=== PATIENT | male | born 1965 | race Caucasian/White ===

== ENCOUNTER 2023-08-10 07:30 | Inpatient (IN) | payer OTHER ==
[2023-08-10] MEDS ORDERED: Aspirin Chewable 81 MG TAB ONE (08:11)
[2023-08-10] MEDS ORDERED: Nitroglycerin 0.4 MG TAB 1 EACH ONE (08:11)
[2023-08-10] MEDS ORDERED: methylPREDNISolone Sod Succ/PF 125 MG/2 ML VIAL ONE (08:12)
[2023-08-10] MEDS ORDERED: Ipratropium/Albuterol 3 ML NEB ONE ×3 (08:13→08:44)
[2023-08-10 08:47] LABS: #Basophils 0.1 thou/uL (0.0-0.2); #Eosinphils 1.1 thou/uL (0.0-0.7); #Monocytes 0.7 thou/uL (0.11-0.59); #Neutrophils 8.4 thou/uL (1.40-6.50); %Basophils 0.6 % (0.0-1.0); %Eosinophils 8.9 % (0.0-10.0); %Lymphocytes 17.7 % (21.0-51.0); %Monocytes 5.4 % (0.0-10.0); %Neutrophils 67.2 % (42.0-75.0); Hematocrit 44.6 % (42.0-52.0); Hemoglobin 14.4 g/dL (14.0-18.0); Mean Corpuscular HGB CONC 32.3 g/dL (32.0-36.0); Mean Corpuscular Hemoglobin 27.9 pg (27.0-31.0); Mean Corpuscular Volume 86.4 fl (78.0-98.0); Mean Platelet Volume 9.9 fL (7.4-10.4); Platelet Count 322 10x3/uL (130-400); RBC Distribution Width 14.4 % (11.5-14.5); Red Blood Cell (RBC) Count 5.16 mill/uL (4.70-6.10); White Blood Cell (WBC) Count 12.6 10x3/uL (4.8-10.8)
[2023-08-10 09:13] LABS: Troponin I 0.011 ng/mL (< 0.028)
[2023-08-10 09:16] LABS: ALT (SGPT) 18 U/L (8-55); AST (SGOT) 16 U/L (5-34); Albumin 4.8 g/dL (3.5-5.0); Alkaline Phosphatase 79 U/L (40-110); Anion Gap 15 mmol/L (10-20); BUN (Urea Nitrogen) 15 mg/dL (8.4-25.7); Bilirubin, Total 0.3 mg/dL (0.2-1.2); Calc. Creatinine Clearance 0 mL/min (70-130); Calcium 9.4 mg/dL (7.8-10.44); Carbon Dioxide 28 mmol/L (22-29); Chloride 102 mmol/L (98-107); Estimated GFR 102; Globulin 2.6 g/dL (2.4-3.5); Glucose 92 mg/dL (70-105); Potassium 4.2 mmol/L (3.5-5.1); Protein, Total 7.4 g/dL (6.0-8.3); Sodium 141 mmol/L (136-145)
[2023-08-10 10:09] LABS: SARS-CoV-2 NAA Rapid Test Not Detected (NotDetected)
[2023-08-10] MEDS ORDERED: Nitroglycerin 0.4 MG TAB (25 Tab Bottle) SL PRN (12:59)
[2023-08-10] MEDS ORDERED: Ondansetron PF 4 MG/2 ML Vial IVP PRN (13:02)
[2023-08-10] MEDS ORDERED: Ondansetron ODT 4 MG TAB PO PRN (13:02)
[2023-08-10 13:42] LABS: Hemoglobin A1c 5.3 % (4.0-6.0)
[2023-08-10] MEDS ORDERED: Glucagon 1 MG/ML KIT IM PRN (13:43)
[2023-08-10] MEDS ORDERED: Dextrose 5% in Water 1,000 ML IV PRN (13:43)
[2023-08-10] MEDS ORDERED: Dextrose 50% Abboject 50 ML SYRINGE SLOW IVP PRN (13:43)
[2023-08-10] MEDS ORDERED: HumaLOG 300 UNITS/3 ML VIAL SC PRN ×2 (13:43)
[2023-08-10 13:48] LABS: Lactic Acid 4.3 mmol/L (0.5-2.2)
[2023-08-10] MEDS ORDERED: cefTRIAXone (ROCEPHIN) 2 GM VIAL ONE (14:03)
[2023-08-10] MEDS ORDERED: Sodium Chloride 0.9% 100 ML ONE (14:04)
[2023-08-10] MEDS ORDERED: Azithromycin 500 MG VIAL ONE (15:15)
[2023-08-10] MEDS ORDERED: Sodium Chloride 0.9% 250 ML 250 ML ONE ×2 (15:15→15:16)
[2023-08-10 17:38] VITALS: BMI 35.5
[2023-08-10] MEDS ORDERED: Sodium Chloride 0.9% 1,000 ML IV SCH (17:45)
[2023-08-10] MEDS: Azithromycin 500 MG in Sodium Chloride 0.9% 250 ML 250 ML IVPB SCH (18:24)
[2023-08-10] MEDS: Mometasone 100 MCG/PUFF (1 INHALER) INH SCH (18:35)
[2023-08-10] MEDS: Acetaminophen 325 MG TAB PO PRN (19:01)
[2023-08-10] MEDS ORDERED: Furosemide 40 MG TAB PO SCH (21:00)
[2023-08-10] MEDS: Carvedilol 6.25 MG TAB PO SCH (21:19)
[2023-08-10] MEDS: Famotidine 20 MG TAB PO SCH (21:19)
[2023-08-10] MEDS: methylPREDNISolone Sod Succ 40 MG VIAL IVP SCH (21:20)
[2023-08-11 04:58] LABS: #Monocytes 0.4 thou/uL (0.11-0.59); #Neutrophils 16.4 thou/uL (1.40-6.50); %Basophils 0.1 % (0.0-1.0); %Lymphocytes 7.9 % (21.0-51.0); %Monocytes 2.1 % (0.0-10.0); %Neutrophils 89.4 % (42.0-75.0); Hematocrit 42.6 % (42.0-52.0); Hemoglobin 13.5 g/dL (14.0-18.0); Mean Corpuscular HGB CONC 31.7 g/dL (32.0-36.0); Mean Corpuscular Hemoglobin 27.4 pg (27.0-31.0); Mean Corpuscular Volume 86.4 fl (78.0-98.0); Mean Platelet Volume 10.1 fL (7.4-10.4); Platelet Count 354 10x3/uL (130-400); RBC Distribution Width 14.7 % (11.5-14.5); Red Blood Cell (RBC) Count 4.93 mill/uL (4.70-6.10); White Blood Cell (WBC) Count 18.3 10x3/uL (4.8-10.8)
[2023-08-11 05:22] LABS: Anion Gap 13 mmol/L (10-20); BUN (Urea Nitrogen) 17 mg/dL (8.4-25.7); Calc. Creatinine Clearance 153 mL/min (70-130); Calcium 9.2 mg/dL (7.8-10.44); Carbon Dioxide 23 mmol/L (22-29); Chloride 106 mmol/L (98-107); Estimated GFR 103; Glucose 147 mg/dL (70-105); Potassium 4.4 mmol/L (3.5-5.1); Sodium 138 mmol/L (136-145)
[2023-08-11] MEDS: Mometasone 100 MCG/PUFF (1 INHALER) INH SCH ×2 (07:14→19:05)
[2023-08-11] MEDS: Atorvastatin Calcium 40 MG TAB PO SCH (09:07)
[2023-08-11] MEDS: DULoxetine 60 MG CAP PO SCH (09:08)
[2023-08-11] MEDS: Aspirin Chewable 81 MG TAB PO SCH (09:08)
[2023-08-11] MEDS: Carvedilol 6.25 MG TAB PO SCH ×2 (09:08→21:15)
[2023-08-11] MEDS: Allopurinol 300 MG TAB PO SCH (09:08)
[2023-08-11] MEDS: Lisinopril 20 MG TAB PO SCH (09:08)
[2023-08-11] MEDS: Magnesium Oxide 400 MG TAB PO SCH (09:08)
[2023-08-11] MEDS: Famotidine 20 MG TAB PO SCH ×2 (09:09→21:14)
[2023-08-11] MEDS: methylPREDNISolone Sod Succ 40 MG VIAL IVP SCH ×2 (09:09→21:16)
[2023-08-11] MEDS ORDERED: Ipratropium/Albuterol 3 ML NEB NEB PRN (12:55)
[2023-08-11] MEDS: cefTRIAXone\\ROCEPHIN 1 GM in Sodium Chloride 0.9% 100 ML IVPB SCH (14:36)
[2023-08-11] MEDS: Azithromycin 500 MG in Sodium Chloride 0.9% 250 ML 250 ML IVPB SCH (15:16)
[2023-08-12 05:17] LABS: #Monocytes 0.4 thou/uL (0.11-0.59); #Neutrophils 20.2 thou/uL (1.40-6.50); %Basophils 0.1 % (0.0-1.0); %Lymphocytes 6.3 % (21.0-51.0); %Monocytes 1.6 % (0.0-10.0); %Neutrophils 91.5 % (42.0-75.0); Hematocrit 45.5 % (42.0-52.0); Hemoglobin 14.5 g/dL (14.0-18.0); Mean Corpuscular HGB CONC 31.9 g/dL (32.0-36.0); Mean Corpuscular Hemoglobin 27.4 pg (27.0-31.0); Mean Platelet Volume 10.6 fL (7.4-10.4); Platelet Count 358 10x3/uL (130-400); RBC Distribution Width 14.7 % (11.5-14.5); Red Blood Cell (RBC) Count 5.29 mill/uL (4.70-6.10)
[2023-08-12 05:42] LABS: Anion Gap 17 mmol/L (10-20); BUN (Urea Nitrogen) 21 mg/dL (8.4-25.7); Calc. Creatinine Clearance 144 mL/min (70-130); Calcium 9.1 mg/dL (7.8-10.44); Carbon Dioxide 24 mmol/L (22-29); Chloride 101 mmol/L (98-107); Estimated GFR 102; Glucose 143 mg/dL (70-105); Potassium 4.5 mmol/L (3.5-5.1); Sodium 137 mmol/L (136-145)
[2023-08-12] MEDS: Mometasone 100 MCG/PUFF (1 INHALER) INH SCH ×2 (09:43→19:01)
[2023-08-12] MEDS: methylPREDNISolone Sod Succ 40 MG VIAL IVP SCH ×2 (10:10→20:11)
[2023-08-12] MEDS: Lisinopril 20 MG TAB PO SCH (10:14)
[2023-08-12] MEDS: DULoxetine 60 MG CAP PO SCH (10:14)
[2023-08-12] MEDS: Atorvastatin Calcium 40 MG TAB PO SCH (10:14)
[2023-08-12] MEDS: Aspirin Chewable 81 MG TAB PO SCH (10:14)
[2023-08-12] MEDS: Magnesium Oxide 400 MG TAB PO SCH (10:15)
[2023-08-12] MEDS: Carvedilol 6.25 MG TAB PO SCH ×2 (10:15→20:11)
[2023-08-12] MEDS: Famotidine 20 MG TAB PO SCH ×2 (10:15→20:11)
[2023-08-12] MEDS: Allopurinol 300 MG TAB PO SCH (10:15)
[2023-08-12] MEDS: Acetaminophen 325 MG TAB PO PRN (11:01)
[2023-08-12] MEDS: cefTRIAXone\\ROCEPHIN 1 GM in Sodium Chloride 0.9% 100 ML IVPB SCH (14:18)
[2023-08-12] MEDS: Azithromycin 500 MG in Sodium Chloride 0.9% 250 ML 250 ML IVPB SCH (15:03)
[2023-08-13] MEDS: Mometasone 100 MCG/PUFF (1 INHALER) INH SCH ×2 (06:17→18:15)
[2023-08-13] MEDS: methylPREDNISolone Sod Succ 40 MG VIAL IVP SCH ×2 (08:34→20:59)
[2023-08-13] MEDS: Allopurinol 300 MG TAB PO SCH (08:37)
[2023-08-13] MEDS: Magnesium Oxide 400 MG TAB PO SCH (08:37)
[2023-08-13] MEDS: Atorvastatin Calcium 40 MG TAB PO SCH (08:37)
[2023-08-13] MEDS: Famotidine 20 MG TAB PO SCH ×2 (08:37→20:59)
[2023-08-13] MEDS: DULoxetine 60 MG CAP PO SCH (08:37)
[2023-08-13] MEDS: Aspirin Chewable 81 MG TAB PO SCH (08:38)
[2023-08-13] MEDS: Carvedilol 6.25 MG TAB PO SCH ×2 (08:38→20:59)
[2023-08-13] MEDS: Lisinopril 20 MG TAB PO SCH (08:38)
[2023-08-13] MEDS: cefTRIAXone\\ROCEPHIN 1 GM in Sodium Chloride 0.9% 100 ML IVPB SCH (14:38)
[2023-08-13] MEDS ORDERED: FLU VACC QS2023-24(6MOS UP)/PF 60 MCG/0.5 ML SYRINGE IM ONE (18:00)
[2023-08-14] MEDS: Mometasone 100 MCG/PUFF (1 INHALER) INH SCH (08:10)
[2023-08-14] MEDS: methylPREDNISolone Sod Succ 40 MG VIAL IVP SCH (08:34)
[2023-08-14] MEDS: Lisinopril 20 MG TAB PO SCH (08:38)
[2023-08-14] MEDS: Allopurinol 300 MG TAB PO SCH (08:38)
[2023-08-14] MEDS: Magnesium Oxide 400 MG TAB PO SCH (08:38)
[2023-08-14] MEDS: Aspirin Chewable 81 MG TAB PO SCH (08:38)
[2023-08-14] MEDS: Atorvastatin Calcium 40 MG TAB PO SCH (08:38)
[2023-08-14] MEDS: Famotidine 20 MG TAB PO SCH (08:38)
[2023-08-14] MEDS: DULoxetine 60 MG CAP PO SCH (08:38)
[2023-08-14] MEDS: Carvedilol 6.25 MG TAB PO SCH (08:38)
[2023-08-14 11:21] VITALS: BP 140/85; TEMP 98.2
== END 2023-08-14 14:35 | disposition home or self-care (01) | DRG 190 ==
LOC: ERS 07:30 → EEVIPCON 13:09 → ERHOLD 13:09 → 2SW 17:24 → OBSVTOIN 08-11 12:50
PROVIDERS: ADMIT Hospitalist; ATTEND Internal Medicine
DX: J44.1 Chronic obstructive pulmonary disease with (acute) exacerbation (principal); I50.33 Acute on chronic diastolic (congestive) heart failure; I11.0 Hypertensive heart disease with heart failure; K21.9 Gastro-esophageal reflux disease without esophagitis; M10.9 Gout, unspecified; E11.9 Type 2 diabetes mellitus without complications; F31.9 Bipolar disorder, unspecified; Z20.822 Contact with and (suspected) exposure to COVID-19; E66.9 Obesity, unspecified; G47.33 Obstructive sleep apnea (adult) (pediatric); Z79.82 Long term (current) use of aspirin; Z79.899 Other long term (current) drug therapy; Z90.49 Acquired absence of other specified parts of digestive tract; Z98.890 Other specified postprocedural states; Z87.891 Personal history of nicotine dependence; Z68.35 Body mass index [BMI] 35.0-35.9, adult
CPT/HCPCS: 36415; 36416; 71045; 80048; 80053; 83036; 83605; 83735; 83880; 84443; 84484; 85025; 87040; 93005; 93306; 94760; J0456; J0696; J2920; J2930; J3490; J7050; J7620